=== PATIENT | female | born 1960 | race Hispanic/Latino ===

== ENCOUNTER 2019-03-04 08:58 | Emergency (ER) | payer SELFPAY ==
[2019-03-04 09:25] VITALS: BP 118/90
[2019-03-04] MEDS ORDERED: TRIPLE ANTIBIOTIC TP ONE (09:38)
[2019-03-04] MEDS ORDERED: BOOSTRIX IM ONE (09:38)
--- NOTE | 2019-03-04 09:57 | Emergency Department Report ---
- General Chief complaint: Wound/Laceration Stated complaint: FISH HOOK STUCK IN FINGER Time Seen by Provider: 03/04/19 09:48 Source: patient Mode of arrival: Ambulatory Limitations: No Limitations - History of Present Illness Initial comments: 59-year-old female with knot" at home. She The bag and accidentally touched a fishhook which became lodged into her fifth digit on the right hand. She was unable to dislodge it at home. She called EMS and presents to the emergency department for removal. Tetanus shot is not up-to-date. She reports dull throbbing pain, worse with palpation. Range of motion - Related Data Home Medications Medication Instructions Recorded Confirmed Last Taken Aspirin EC [Halfprin EC] 81 mg PO QDAY 01/04/14 01/04/14 Unknown amLODIPine [Norvasc] 10 mg PO DAILY 01/04/14 01/04/14 Unknown Previous Rx's Medication Instructions Recorded Last Taken Type ALBUTEROL Inhaler (OR & NICU) 2 puff IH QID PRN #1 inhalation 01/04/14 Unknown Rx [ProAir HFA Inhaler] Azithromycin [Zithromax Z-RUTHY] 250 mg PO DAILY #6 tablet 01/04/14 Unknown Rx Prednisone [Prednisone 10 mg 10 mg PO .TAPER #1 tab.ds.pk 01/04/14 Unknown Rx (6-Day Pack, 21 Tabs)] Chlorhexidine Gluconate [Hibiclens] 10 ml TP BID #240 liquid 03/04/19 Unknown Rx cephALEXin [Keflex] 500 mg PO Q6HR #28 capsule 03/04/19 Unknown Rx Allergies Allergy/AdvReac Type Severity Reaction Status Date / Time No Known Allergies Allergy Verified 06/13/18 07:55 Abscess Boil HPI - HPI Chief Complaint: Wound/Laceration Stated Complaint: FISH HOOK STUCK IN FINGER Time Seen by Provider: 03/04/19 09:48 Home Medications: Home Medications Medication Instructions Recorded Confirmed Last Taken Aspirin EC [Halfprin EC] 81 mg PO QDAY 01/04/14 01/04/14 Unknown amLODIPine [Norvasc] 10 mg PO DAILY 01/04/14 01/04/14 Unknown Previous Rx's Medication Instructions Recorded Last Taken Type ALBUTEROL Inhaler (OR & NICU) 2 puff IH QID PRN #1 inhalation 01/04/14 Unknown Rx [ProAir HFA Inhaler] Azithromycin [Zithromax Z-RUTHY] 250 mg PO DAILY #6 tablet 01/04/14 Unknown Rx Prednisone [Prednisone 10 mg 10 mg PO .TAPER #1 tab.ds.pk 01/04/14 Unknown Rx (6-Day Pack, 21 Tabs)] Chlorhexidine Gluconate [Hibiclens] 10 ml TP BID #240 liquid 03/04/19 Unknown Rx cephALEXin [Keflex] 500 mg PO Q6HR #28 capsule 03/04/19 Unknown Rx Allergies/Adverse Reactions: Allergies Allergy/AdvReac Type Severity Reaction Status Date / Time No Known Allergies Allergy Verified 06/13/18 07:55 ED Review of Systems ROS: Stated complaint: FISH HOOK STUCK IN FINGER Other details as noted in HPI Comment: All other systems reviewed and negative ED Past Medical Hx - Past Medical History Previous Medical History?: Yes Hx Hypertension: Yes Hx Kidney Stones: Yes - Surgical History Past Surgical History?: Yes Additional Surgical History: TUBAL LIGATION. LASER SURGERY FOR KIDNEY STONES - Social History Smoking Status: Current Every Day Smoker Substance Use Type: None - Medications Home Medications: Home Medications Medication Instructions Recorded Confirmed Last Taken Type ALBUTEROL Inhaler (OR & NICU) 2 puff IH QID PRN #1 inhalation 01/04/14 Unknown Rx [ProAir HFA Inhaler] Aspirin EC [Halfprin EC] 81 mg PO QDAY 01/04/14 01/04/14 Unknown History Azithromycin [Zithromax Z-RUTHY] 250 mg PO DAILY #6 tablet 01/04/14 Unknown Rx Prednisone [Prednisone 10 mg 10 mg PO .TAPER #1 tab.ds.pk 01/04/14 Unknown Rx (6-Day Pack, 21 Tabs)] amLODIPine [Norvasc] 10 mg PO DAILY 01/04/14 01/04/14 Unknown History Chlorhexidine Gluconate [Hibiclens] 10 ml TP BID #240 liquid 03/04/19 Unknown Rx cephALEXin [Keflex] 500 mg PO Q6HR #28 capsule 03/04/19 Unknown Rx ED Physical Exam - General Limitations: No Limitations General appearance: alert, in no apparent distress - Head Head exam: Present: atraumatic, normocephalic - Eye Eye exam: Present: normal appearance - Respiratory Respiratory exam: Present: normal lung sounds bilaterally. Absent: respiratory distress - Cardiovascular Cardiovascular Exam: Present: regular rate, normal rhythm. Absent: systolic murmur, diastolic murmur, rubs, gallop - GI/Abdominal GI/Abdominal exam: Present: soft, normal bowel sounds - Extremities Exam Extremities exam: Present: normal inspection, other (puncture wound to the right fifth digit, palmar aspect fishhook) - Back Exam Back exam: Present: normal inspection - Neurological Exam Neurological exam: Present: alert, oriented X3, CN II-XII intact - Psychiatric Psychiatric exam: Present: normal affect, normal mood - Skin Skin exam: Present: warm, dry, intact, normal color. Absent: rash ED Course Vital Signs 03/04/19 09:21 Temperature 97.6 F Pulse Rate 90 Respiratory 18 Rate Blood Pressure 118/90 O2 Sat by Pulse 98 Oximetry - Procedure Description Procedures done: Wound prepped and draped in sterile fashion anesthesia. She achieved with 2% lidocaine. A #11 scalpel blade used to make a very tiny incision. The incision site was then. Current Radha's without complications irrigated with saline, cleaned again with chlorhexidine and bandaged with a Bactroban Critical care attestation.: If time is entered above; I have spent that time in minutes in the direct care of this critically ill patient, excluding procedure time. ED Disposition Clinical Impression: Fish hook injury of finger of right hand Disposition: DC-01 TO HOME OR SELFCARE Is pt being admited?: No Does the pt Need Aspirin: No Condition: Stable Instructions: Puncture Wound (ED), Tetanus Toxoid (Injection) Prescriptions: Chlorhexidine Gluconate [Hibiclens] 10 ml TP BID #240 liquid cephALEXin [Keflex] 500 mg PO Q6HR #28 capsule Referrals: [facility] [Provider Group] - 3-5 Days
== END 2019-03-04 10:15 | disposition home or self-care (01) ==
LOC: ED 08:58
DX: S60.456A Superficial foreign body of right little finger, initial encounter (principal); I10 Essential (primary) hypertension; F17.200 Nicotine dependence, unspecified, uncomplicated; W45.8XXA Other foreign body or object entering through skin, initial encounter; Y93.89 Activity, other specified; Y92.89 Other specified places as the place of occurrence of the external cause; Y99.8 Other external cause status
CPT/HCPCS: 90471; 90715; A6250